=== PATIENT | male | born 1965 | race Caucasian/White ===

== ENCOUNTER 2018-01-08 08:26 | Outpatient (REF) | payer BC, SELFPAY ==
[2018-01-08 12:50] LABS: ALT 44 U/L (12-78); AST 27 U/L (15-37); Alkaline Phosphatase 48 U/L (46-116); BUN 16 mg/dL (7-18); Bilirubin, Total 1.4 mg/dL (0.2-1.0); CREATININE 0.98 mg/dL (0.70-1.30); Calcium 9.2 mg/dL (8.5-10.1); Chloride 103 mmol/L (98-107); Cholesterol 231 mg/dL (50-200); Glucose 84 mg/dL (70-100); HDL Cholesterol 53 mg/dL (40-60); LDL CHOLESTEROL 164 mg/dL (<100); Potassium 4.2 mmol/L (3.5-5.1); Sodium 141 mmol/L (136-145); Triglyceride 139 mg/dL (30-150)
== END 2018-01-08 08:46 ==
LOC: NCHCN 08:26
PROVIDERS: PCP Nurse Practitioner; Visit Provider Nurse Practitioner
DX: R03.0 Elevated blood-pressure reading, without diagnosis of hypertension (principal); E78.5 Hyperlipidemia, unspecified
CPT/HCPCS: 80053; 80061; 83721

== ENCOUNTER 2018-07-28 16:11 | Outpatient (REF) | payer BC, SELFPAY ==
[2018-07-30 12:26] LABS: Lyme Ab w Rflx to Lyme Confirm Negative
== END 2018-07-28 16:31 ==
LOC: NCHCN 16:11
PROVIDERS: PCP Nurse Practitioner; Visit Provider Family Medicine
DX: A69.20 Lyme disease, unspecified (principal)
CPT/HCPCS: 86618

== ENCOUNTER 2018-10-31 09:26 | Day surgery (SDC) | payer BC, SELFPAY ==
[2018-10-31 09:52] VITALS: BP 139/93; PULSE 79; RESP 18; TEMP 36.2; O2SAT 97
[2018-10-31] MEDS: Lactated Ringers 1,000 ML 80 ML IV (10:12)
--- NOTE | 2018-10-31 11:29 | W.PM.DSUDISC ---
Discharge Plan Disposition Patient Disposition: HOME Condition: Good Discharge Details Reason For Visit: Colonoscopy Attending Provider: Hina Coburn Primary Care Provider: Lauren Juárez Home Meds and New Rx's Prescriptions: Continued multivitamin capsule 1 cap PO DAILY RF: 0 Discharge Instructions Additional Instructions: Findings: Your colonoscopy was normal Follow up: Plan for routine screening colonoscopy in 10 years or sooner if symptoms arise. Please call if you develop: fevers >101.5 Nausea or Vomiting Abdominal pain that is not transient DAY SURGERY UNIT POST COLONOSCOPY INSTRUCTIONS 1. Because there will be medication in your system for the next 24 hours, you may feel a little sleepy. Your coordination will be affected. Therefore: a. Do not drive or operate dangerous equipment for 24 hours. b. Do not drink alcohol beverages for 24 hours (not even beer). c. Plan to go home and rest for the day. 2. Generally there are no restrictions on your activity after a day or so has gone by, but you may feel a bit fatigued for a few days. 3 After you arrive home you may have a light meal and return to a normal diet as you can tolerate it without feeling sick to your stomach. 4. After surgery, you may feel pain or discomfort. This should be only transient, but if it persists please contact your doctor. 5. If there are any questions regarding the findings of your procedure, please feel free to contact your doctor. 6. If you are unable to contact your doctor with a problem, contact the hospital at [phone]. 7. Continue all your regular medications unless directed otherwise. I understand the above instructions and have no questions. Signature of Patient or Responsible Adult Escort Date/Time Name of Responsible Adult Escort Signature of Nurse Date/Time Activity:: Activity as Tolerated Diet:: As Tolerated Discharge Orders Discharge Orders: Discharge Order (Routine); Ordered 10/31/18 Ordered By: Hina Coburn DS: Diagnosis Discharge Diagnosis (1) Normal colonoscopy: Status: Acute
[2018-10-31 12:55] VITALS: BP 136/88; PULSE 63; RESP 16; TEMP 36.4; O2SAT 97
--- NOTE | 2018-10-31 15:23 | COLE_ITS ---
DATE OF PROCEDURE: October 31, 2018 PREOPERATIVE DIAGNOSIS: Screening. POSTOPERATIVE DIAGNOSIS: Normal colon. PROCEDURE: Colonoscopy. SURGEON: Hina Coburn M.D. ANESTHESIA: General. INDICATIONS: This is a 52-year-old man who presents for his first screening colonoscopy. He is asym ptomatic and has no family history of colon cancer. PROCEDURE: The patient was placed in the left Berg position. Propofol was titrated to sedation. D igital rectal examination revealed no abnormalities. The scope was advanced to the cecum without dif ficulty. The ileocecal valve and appendiceal orifice were clearly identified. His prep was excellen t. The scope was slowly withdrawn with no abnormalities seen within the ascending, transverse, desce nding, sigmoid colon or rectum, including on retroflex view. He tolerated the procedure well and was stable to recovery. He will need a follow-up screening exam in ten years or sooner if symptoms indicate. cc: Lauren Juárez N.P.
== END 2018-10-31 13:11 | disposition home or self-care (01) ==
PROVIDERS: PCP Nurse Practitioner; Visit Provider Surgery
PROC: 0DJD8ZZ Inspection of Lower Intestinal Tract, Via Natural or Artificial Opening Endoscopic (ICD-10-PCS; CPT 45378; principal; 2018-10-31 12:15)
DX: Z12.11 Encounter for screening for malignant neoplasm of colon (principal)
CPT/HCPCS: 45378

== ENCOUNTER 2020-04-04 16:10 | Outpatient (REF) | payer BC, SELFPAY ==
[2020-04-04 18:53] LABS: Abs Immature Grans 0.02 10^3/uL (0.0-0.06); Absolute Basophil Count 0.05 10^3/uL (0.0-0.2); Absolute Eosinophil Count 0.16 10^3/uL (0.0-0.7); Absolute Lymphocyte Count 3.22 10^3/uL (1.2-3.4); Absolute Monocyte Count 0.56 10^3/uL (0.1-0.8); Absolute Neutrophil Count 5.42 10^3/uL (1.2-6.7); Basophils % 0.5; Eosinophils % 1.7; HCT 44.7 % (40.0-50.0); Immature Grans % 0.2; Lymphocytes % 34.1; MCH 27.8 pg (27.0-33.0); MCHC 33.6 % (32.0-36.0); MCV 82.9 fL (80-95); MPV 9.7 fL (8.0-11.0); Monocytes % 5.9; Neutrophils % 57.6; Nucleated RBC 0 %; Platelet Count 303 10^3/uL (130-400); RBC 5.39 10^6/uL (4.36-5.78); RDW 12.4 % (11.8-14.1); RDW-SD 37.3 fL; WBC 9.43 10^3/uL (4.4-10.8)
[2020-04-04 19:21] LABS: ALT 51 U/L (16-63); AST 34 U/L (15-37); Alkaline Phosphatase 55 U/L (46-116); Anion Gap 7.2 mmol/L (3-11); BUN 13 mg/dL (7-18); Bilirubin, Total 0.5 mg/dL (0.2-1.0); C-Reactive Protein 0.12 mg/dL (0.0-0.3); CO2 29.8 mmol/L (21.0-32.0); CREATININE 0.9 mg/dL (0.70-1.30); Calcium 8.9 mg/dL (8.5-10.1); Chloride 103 mmol/L (98-107); Glucose 87 mg/dL (74-106); Potassium 3.8 mmol/L (3.5-5.1); Sodium 140 mmol/L (136-145); TSH (W/Ref FT4) 2.15 uIU/mL (0.36-3.74); Total Protein 7.2 g/dL (6.4-8.2)
[2020-04-06 11:56] LABS: IgA 231 mg/dL (85-499); Interpretation (See Note); Tissue Transglutaminase IgA <1.2 U/mL (<4.0)
== END 2020-04-04 16:11 | disposition home or self-care (01) ==
LOC: NCHCN 16:10
PROVIDERS: PCP Nurse Practitioner; Visit Provider Nurse Practitioner
DX: K29.70 Gastritis, unspecified, without bleeding (principal); R63.4 Abnormal weight loss; R19.7 Diarrhea, unspecified
CPT/HCPCS: 80053; 82784; 83516; 84443; 85025; 86140

== ENCOUNTER 2020-04-05 19:26 | Outpatient (REF) | payer BC, SELFPAY ==
[2020-04-06 11:01] LABS: C Diff PCR Negative (Negative)
== END 2020-04-05 19:27 | disposition home or self-care (01) ==
LOC: LBN 19:26
PROVIDERS: PCP Nurse Practitioner; Visit Provider Nurse Practitioner
DX: R19.7 Diarrhea, unspecified (principal); K29.70 Gastritis, unspecified, without bleeding; R63.4 Abnormal weight loss
CPT/HCPCS: 87329; 87493; 83630; 87177

== ENCOUNTER 2020-09-13 03:00 | Outpatient (CLI) | payer BC, SELFPAY ==
--- NOTE | 2020-09-13 | DI.MRI_ITS ---
Exam(s) MR LUMBAR SPINE WO EXAM: MR LUMBAR SPINE WO CLINICAL HISTORY: RADICULOPATHY,M54.10. TECHNIQUE: Multiplanar multisequence MRI of the Lumbar spine was performed. COMPARISON: No exams were available for comparison FINDINGS: Bones: The last intervertebral disc space is designated the L5/S1 level for the numbering purpose of this examination. The vertebral body heights are well maintained. Alignment is satisfactory. Mild d egenerative endplate signal changes are seen from L1-L2 through L4-L5. Cord: The conus tip ends at the T12 level. It is of normal size and signal intensity. T12-L1: No disc herniations or bulges are present. No central spinal canal or neural foraminal stenos is. L1-2: There is a diffuse disc bulge eccentric to the right. There is mild narrowing of the central s carlos canal. Mild narrowing of the left neural foramen is seen. L2-3: There is a diffuse disc bulge with lateral herniation to the right. Degenerative changes of th e facets are present. These all contribute to cause moderately severe central spinal canal stenosis. Mild narrowing of the right neural foramen is seen. No significant left neural foraminal stenosis is present. L3-4: There is a large diffuse disc bulge. There are hypertrophic changes of the facets. These all contribute to cause severe central spinal canal stenosis. Mild narrowing of the neural foramen is se en bilaterally. L4-5: There is a diffuse disc bulge. There are hypertrophic changes of the facets and ligamentum fla vum. These all contribute to cause moderately severe central spinal canal stenosis. Mild bilateral neural foraminal stenosis is present. L5-S1: There is a mild diffuse disc bulge. Mild degenerative changes of the facets are noted. No si gnificant central spinal canal stenosis is present. Moderately severe left neural foraminal stenosis is present. Soft tissues: The visualized SI joints and sacrum are well maintained. The paraspinal soft tissues ar e unremarkable. A simple cyst is seen in the midpole of the right kidney. This was present on ultras ound of the abdomen from 09/28/2014. IMPRESSION: Multilevel degenerative changes with disc bulges causing central spinal canal and neural foraminal st enosis as described above. DATA REPOSITORY:
== END 2020-09-13 03:20 ==
PROVIDERS: PCP Nurse Practitioner; Visit Provider Nurse Practitioner
DX: M47.27 Other spondylosis with radiculopathy, lumbosacral region (principal); M48.07 Spinal stenosis, lumbosacral region; M51.17 Intervertebral disc disorders with radiculopathy, lumbosacral region
CPT/HCPCS: 72148

== ENCOUNTER 2021-04-20 09:27 | Outpatient (REF) | payer BC, SELFPAY ==
[2021-04-20 15:03] LABS: Anion Gap 6.7 mmol/L (3-11); BUN 18 mg/dL (7-18); CO2 29.3 mmol/L (21.0-32.0); Calculated LDL 167 mg/dL (<100); Chloride 105 mmol/L (98-107); Cholesterol 241 mg/dL (<200); Glucose 76 mg/dL (74-106); HDL Cholesterol 48 mg/dL (40-60); Potassium 4.3 mmol/L (3.5-5.1); Sodium 141 mmol/L (136-145); Triglyceride 133 mg/dL (<150)
[2021-04-20 22:57] LABS: PSA, Screening 0.6 ng/mL (0.0-3.5)
== END 2021-04-20 09:28 | disposition home or self-care (01) ==
LOC: LBN 09:27
PROVIDERS: PCP Nurse Practitioner; Visit Provider Physician Assistant
DX: I10 Essential (primary) hypertension (principal); M48.061 Spinal stenosis, lumbar region without neurogenic claudication; Z12.5 Encounter for screening for malignant neoplasm of prostate; E78.5 Hyperlipidemia, unspecified
CPT/HCPCS: 80048; 80061; 84153

== ENCOUNTER 2022-04-19 14:57 | Outpatient (REF) | payer BC, SELFPAY ==
[2022-04-19 15:00] LABS: Abs Immature Grans 0.02 10^3/uL (0.0-0.06); Absolute Basophil Count 0.06 10^3/uL (0.0-0.2); Absolute Eosinophil Count 0.22 10^3/uL (0.0-0.7); Absolute Lymphocyte Count 3.66 10^3/uL (1.2-3.4); Absolute Monocyte Count 0.57 10^3/uL (0.1-0.8); Absolute Neutrophil Count 4.62 10^3/uL (1.2-6.7); Basophils % 0.7; Eosinophils % 2.4; HCT 42.8 % (40.0-50.0); HGB 14.1 g/dL (13.5-17.5); Immature Grans % 0.2; MCH 27.6 pg (27.0-33.0); MCHC 32.9 % (32.0-36.0); MCV 84 fL (80-95); MPV 9.8 fL (8.0-11.0); Monocytes % 6.2; Neutrophils % 50.5; Platelet Count 267 10^3/uL (130-400); RBC 5.11 10^6/uL (4.36-5.78); RDW 12.7 % (11.8-14.1); RDW-SD 38.7 fL; WBC 9.15 10^3/uL (4.4-10.8)
[2022-04-19 15:25] LABS: Anion Gap 8.1 mmol/L (3-11); BUN 23 mg/dL (7-18); CO2 27.9 mmol/L (21.0-32.0); CREATININE 0.9 mg/dL (0.70-1.30); Calcium 9.2 mg/dL (8.5-10.1); Calculated LDL 147 mg/dL (<100); Chloride 105 mmol/L (98-107); Cholesterol 222 mg/dL (<200); Estimated GFR 100.24 (mL/min/1.73m2); Glucose 92 mg/dL (74-106); HDL Cholesterol 53 mg/dL (40-60); Potassium 4.3 mmol/L (3.5-5.1); Sodium 141 mmol/L (136-145); Triglyceride 111 mg/dL (<150)
== END 2022-04-19 14:58 | disposition home or self-care (01) ==
LOC: NCHCN 14:57
PROVIDERS: PCP Nurse Practitioner; Visit Provider Physician Assistant
DX: Z00.00 Encounter for general adult medical examination without abnormal findings (principal); E78.5 Hyperlipidemia, unspecified; I10 Essential (primary) hypertension; K58.9 Irritable bowel syndrome, unspecified
CPT/HCPCS: 80048; 80061; 85025

== ENCOUNTER 2022-07-08 15:43 | Emergency (ER) | payer BC, SELFPAY ==
[2022-07-08 15:48] VITALS: BP 157/92; PULSE 76; RESP 16; TEMP 37.7; O2SAT 96
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
--- NOTE | 2022-07-08 16:45 | DI.RAD_ITS ---
Exam(s) XR CHEST 2V PA LATERAL EXAM: XR CHEST 2V PA LATERAL CLINICAL HISTORY: pain TECHNIQUE: 2D digital imaging was performed of the chest. Two images were obtained. PA and lateral views were obtained. COMPARISON: Comparison examination is 12/15/2012. FINDINGS: MEDIASTINUM: Normal. HEART: Normal. PULMONARY VASCULATURE: Normal. LUNGS: There is bilateral basilar atelectasis. No focal consolidating infiltrates. PLEURAL SPACE: There is a small right apical pneumothorax measuring 1.8 cm from the apex of the right hemithorax. No left pneumothorax. No pleural effusion. BONE:Within normal limits for the patient's age. OTHER FINDINGS:Normal. IMPRESSION: 1. Small right apical pneumothorax. 2. Small bilateral basilar linear infiltrates likely reflecting atelectasis. 3. No acute fracture. 4. Findings were discussed with Dr. Cline at 7:40 p.m. on 07/08/2022. DATA REPOSITORY: RADIATION DOSE DELIVERED:
[2022-07-08 17:12] VITALS: BP 149/94; PULSE 80; RESP 18; O2SAT 97
--- NOTE | 2022-07-08 17:18 | DI.VRAD_ITS ---
PROCEDURE INFORMATION: Exam: XR Chest Exam date and time: 07/08/2022 4:54 PM Age: 56 years old Clinical indication: Chest wall pain and right-sided; Patient HX: Pain on right side TECHNIQUE: Imaging protocol: Radiologic exam of the chest. Views: 2 views. COMPARISON: No relevant prior studies available. FINDINGS: Lungs: Basilar airspace consolidation bilaterally suggesting atelectasis or possibly basilar infiltrates. This is more prominent on the right than the left. Pleural spaces: Minimal right pleural effusion is suggested. Heart/Mediastinum: Normal heart size. Bones/joints: No acute skeletal changes. IMPRESSION: 1. Bibasilar lung consolidative features suggesting atelectasis or basilar infiltrates. More prominent on right than left. 2. Small right pleural effusions is suggested. 3. Normal cardiac and mediastinal silhouette. Dictated and Authenticated by: Shaun Graham MD. Ordering:LATOYA Cabrera MD
[2022-07-08] MEDS: Lidocaine 5% Patch 1 PATCH TP (17:30)
[2022-07-08 18:13] VITALS: BP 144/90; PULSE 78; RESP 16; O2SAT 97
--- NOTE | 2022-07-08 20:44 | W.EDPROG ---
Date of service: 07/08/22 Time of Service: 20:45 Medical Decision Making Received phone call from Dr. Olivera stating that patient may have a small apical pneumothorax. Case was discussed with Dr. Moser. PLan is for the Patient to return to the emergency department tomorrow morning for repeat chest x-ray. I have talked with the patient and he is aware of the small PTx. Discharge Plan Disposition Patient Disposition: Home Discharge Details Clinical Impression: Chest wall contusion Primary Care Provider: Lauren Juárez ED Provider: Rick Cline Home Meds and New Rx's Prescriptions: No Action multivitamin capsule 1 cap PO DAILY lisinopril 5 mg Tablet 5 mg PO DAILY Discharge Instructions Instructions: Contusion in Adults (ED) Additional Instructions: You may take Tylenol 1 g every 6 hours for the pain you may also take ibuprofen 600 mg every 8 hours for the pain. Use the lidocaine patch 12 hours. You are being sent home with a lidocaine patch now to help ease the pain. I recommend however that you transition to day of the lidocaine patch. the lidocaine patch stays on 12 hours a day. do not use any warm compresses or ice packs on over of the lidocaine patches. You may use these modalities when the lidocaine patch is off. use the incentive spiromter every hour while awake Stand Alone Forms: Work Release Discharge Data Discharge Date/Time-TO BE ENTERED AT DEPARTURE: 07/08/22 18:03
== END 2022-07-08 18:03 | disposition home or self-care (01) ==
PROVIDERS: Emergency Provider Emergency Medicine; PCP Physician Assistant
DX: S20.219A Contusion of unspecified front wall of thorax, initial encounter (principal); V19.88XA Pedal cyclist (driver) (passenger) injured in other specified transport accidents, initial encounter; J90 Pleural effusion, not elsewhere classified; R91.8 Other nonspecific abnormal finding of lung field
CPT/HCPCS: 99283; 71046

== ENCOUNTER 2022-07-09 09:26 | Emergency (ER) | payer BC, SELFPAY ==
--- NOTE | 2022-07-09 09:15 | DI.RAD_ITS ---
Exam(s) XR CHEST 2V PA LATERAL EXAM: XR CHEST 2V PA LATERAL CLINICAL HISTORY: reevaluation of possible PTx TECHNIQUE: 2D digital imaging was performed of the chest. Two images were obtained. PA and lateral views were obtained. COMPARISON: CR,XR XR CHEST 2V PA LATERAL from 07/08/2022 FINDINGS: MEDIASTINUM: Normal. HEART: Normal. PULMONARY VASCULATURE: Normal. LUNGS: Persistent linear atelectasis is seen in the lung bases which shows slight improvement. PLEURAL SPACE: There is a persistent very small right apical pneumothorax. There has been no signifi cant change in size compared to the prior examination. There is no left pneumothorax. No pleural ef fusion. BONE:Within normal limits for the patient's age. OTHER FINDINGS:Normal. IMPRESSION: 1. There is a stable small right apical pneumothorax. 2. Bilateral basilar atelectasis. DATA REPOSITORY: RADIATION DOSE DELIVERED:
[2022-07-09 09:30] VITALS: BP 144/73; PULSE 77; RESP 18; TEMP 37; O2SAT 97
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
== END 2022-07-09 10:25 | disposition home or self-care (01) ==
PROVIDERS: Emergency Provider Physician Assistant; PCP Physician Assistant
DX: J93.9 Pneumothorax, unspecified (principal)
CPT/HCPCS: 99283; 71046

== ENCOUNTER 2022-07-24 02:43 | Outpatient (CLI) | payer BC, SELFPAY ==
--- NOTE | 2022-07-24 | DI.RAD_ITS ---
Exam(s) XR CHEST 2V PA LATERAL EXAM: XR CHEST 2V PA LATERAL CLINICAL HISTORY: F/U SMALL PNEUMOTHORAX, J93.9 TECHNIQUE: 2D digital imaging was performed of the chest. Two images were obtained. PA and lateral views were obtained. COMPARISON: CR XR CHEST 2V PA LATERAL from 07/09/2022 FINDINGS: MEDIASTINUM: Normal. HEART: Normal. PULMONARY VASCULATURE: Normal. LUNGS: Plate atelectasis is seen in the lung base. The lungs are otherwise clear. PLEURAL SPACE: No pleural effusion or pneumothorax. BONE:Within normal limits for the patient's age. OTHER FINDINGS:Normal. IMPRESSION: 1. No acute pulmonary findings. 2. No evidence of a pneumothorax. DATA REPOSITORY: RADIATION DOSE DELIVERED:
== END 2022-07-24 03:03 ==
LOC: DI 02:44
PROVIDERS: PCP Physician Assistant; Visit Provider Physician Assistant
DX: V19.88XD Pedal cyclist (driver) (passenger) injured in other specified transport accidents, subsequent encounter (principal); S20.219D Contusion of unspecified front wall of thorax, subsequent encounter; J90 Pleural effusion, not elsewhere classified; X58.XXXD Exposure to other specified factors, subsequent encounter
CPT/HCPCS: 71046

== ENCOUNTER 2022-09-24 17:59 | Outpatient (REF) | payer BC, SELFPAY ==
[2022-09-24 21:47] LABS: Abs Immature Grans 0.01 10^3/uL (0.0-0.06); Absolute Basophil Count 0.05 10^3/uL (0.0-0.2); Absolute Eosinophil Count 0.05 10^3/uL (0.0-0.7); Absolute Lymphocyte Count 1.77 10^3/uL (1.2-3.4); Absolute Monocyte Count 0.85 10^3/uL (0.1-0.8); Absolute Neutrophil Count 3.44 10^3/uL (1.2-6.7); Basophils % 0.8; Eosinophils % 0.8; HCT 43.1 % (40.0-50.0); HGB 14.6 g/dL (13.5-17.5); Immature Grans % 0.2; Lymphocytes % 28.7; MCHC 33.9 % (32.0-36.0); MCV 83 fL (80-95); MPV 9.9 fL (8.0-11.0); Monocytes % 13.8; Neutrophils % 55.7; Platelet Count 214 10^3/uL (130-400); RBC 5.22 10^6/uL (4.36-5.78); WBC 6.17 10^3/uL (4.4-10.8)
[2022-09-24 21:48] LABS: ALT 64 U/L (16-63); AST 57 U/L (15-37); Albumin 3.8 g/dL (3.4-5.0); Alkaline Phosphatase 86 U/L (46-116); Anion Gap 9.2 mmol/L (3-11); BUN 15 mg/dL (7-18); Bilirubin, Total 0.9 mg/dL (0.2-1.0); CO2 28.8 mmol/L (21.0-32.0); CREATININE 0.9 mg/dL (0.70-1.30); Chloride 98 mmol/L (98-107); Estimated GFR 99.62 (mL/min/1.73m2); Glucose 97 mg/dL (74-106); Potassium 4.1 mmol/L (3.5-5.1); Sodium 136 mmol/L (136-145); Total Protein 7.1 g/dL (6.4-8.2)
[2022-09-26 11:11] LABS: Lyme Ab w Rflx to Lyme Confirm Equivocal (Negative)
[2022-09-26 12:32] LABS: Lyme IgG Ab Negative (Negative); Lyme IgM Ab Positive (Negative)
[2022-09-27 15:17] LABS: Anaplasma phagocytophilum Negative (Negative); B. miyamotoi PCR Negative (Negative); Babesia divergens/MO-1 Negative (Negative); Babesia duncani Negative (Negative); Babesia microti Negative (Negative); Ehrlichia chaffeensis Negative (Negative); Ehrlichia ewingii/canis Negative (Negative); Ehrlichia muris eauclairensis Negative (Negative)
== END 2022-09-24 18:00 | disposition home or self-care (01) ==
LOC: LBN 17:59
PROVIDERS: PCP Physician Assistant; Visit Provider Family Medicine
DX: R50.9 Fever, unspecified (principal)
CPT/HCPCS: 80053; 86617; 87798; 85025; 86618

== ENCOUNTER 2023-06-03 05:57 | Outpatient (CLI) | payer BC, SELFPAY ==
[2023-06-03 15:52] LABS: HCT 43.1 % (40.0-50.0); HGB 14.5 g/dL (13.5-17.5); MCH 27.8 pg (27.0-33.0); MCHC 33.6 % (32.0-36.0); MCV 83 fL (80-95); Platelet Count 250 10^3/uL (130-400); RBC 5.21 10^6/uL (4.36-5.78); RDW 12.8 % (11.8-14.1); RDW-SD 38.5 fL; WBC 9.98 10^3/uL (4.4-10.8)
[2023-06-03 16:16] LABS: ALT 32 U/L (16-63); AST 23 U/L (15-37); Albumin 3.9 g/dL (3.4-5.0); Alkaline Phosphatase 51 U/L (46-116); Anion Gap 7.5 mmol/L (3-11); BUN 12 mg/dL (7-18); Bilirubin, Total 1.1 mg/dL (0.2-1.0); CO2 30.5 mmol/L (21.0-32.0); CREATININE 0.9 mg/dL (0.70-1.30); Calcium 9.1 mg/dL (8.5-10.1); Calculated LDL 137 mg/dL (<100); Chloride 102 mmol/L (98-107); Cholesterol 217 mg/dL (<200); Estimated GFR 99.62 (mL/min/1.73m2); Glucose 90 mg/dL (74-106); HDL Cholesterol 55 mg/dL (40-60); Potassium 3.9 mmol/L (3.5-5.1); Sodium 140 mmol/L (136-145); Total Protein 7.3 g/dL (6.4-8.2); Triglyceride 126 mg/dL (<150)
[2023-06-04 08:19] LABS: PSA, Screening 0.6 ng/mL (<=3.5)
== END 2023-06-03 05:58 | disposition home or self-care (01) ==
PROVIDERS: PCP Physician Assistant; Visit Provider Physician Assistant
DX: I10 Essential (primary) hypertension (principal); E78.5 Hyperlipidemia, unspecified
CPT/HCPCS: 36415; 80053; 80061; 84153; 85027

== ENCOUNTER 2023-10-27 12:17 | Emergency (ER) | payer BC, SELFPAY ==
[2023-10-27] VITALS (45 sets, daily range): BP systolic 95–134; BP diastolic 54–90; PULSE 52–83; RESP 7–22; TEMP 36.2; O2SAT 95–100
--- NOTE | 2023-10-27 12:30 | RT.EKG_ITS ---
APPROVED REPORT Exam: Resting ECG Reason for Exam: WEakness Patient Location: E HR:56 bpm ECG Measurements Heart Rate 56 AXIS IA 156 P 59 QRSd 106 QRS 2 QT 429 T 32 QTc 416 Conclusion Sinus bradycardia...rate< 60 Probable left atrial enlargement...P >50mS, <-0.10mV V1 Low voltage, extremity leads...all extremity leads <0.5mV sinus severiano, normal intervals, non ischemic
--- NOTE | 2023-10-27 12:30 | DI.RAD_ITS ---
Exam(s) XR CHEST 2V PA LATERAL EXAM: XR CHEST 2V PA LATERAL CLINICAL HISTORY: weakness diaphoresis TECHNIQUE: 2D digital imaging was performed of the chest. Three images were obtained. PA and later al views were obtained. COMPARISON: CR XR CHEST 2V PA LATERAL from 07/24/2022 FINDINGS: MEDIASTINUM: Normal. HEART: Normal. PULMONARY VASCULATURE: Normal. LUNGS: There is linear atelectasis or scarring in the lung bases. No focal consolidating infiltrates are present. PLEURAL SPACE: No pleural effusion or pneumothorax. BONE:Within normal limits for the patient's age. OTHER FINDINGS:Normal. IMPRESSION: No focal consolidating infiltrates. DATA REPOSITORY: RADIATION DOSE DELIVERED:
[2023-10-27] MEDS: ACETAMINOPHEN 1,000 MG/100 ML BTL 400 MG IVPB (12:50)
[2023-10-27] MEDS: Normal Saline 1,000 ML 1000 ML IV (12:52)
[2023-10-27 12:56] LABS: Abs Immature Grans 0.02 10^3/uL (0.0-0.06); HCT 44.1 % (40.0-50.0); MCH 27.4 pg (27.0-33.0); MCV 81 fL (80-95); MPV 9.2 fL (8.0-11.0); Platelet Count 132 10^3/uL (130-400); RBC 5.48 10^6/uL (4.36-5.78); RDW 12.7 % (11.8-14.1); RDW-SD 36.6 fL; WBC 5.38 10^3/uL (4.4-10.8)
[2023-10-27 12:59] LABS: BE (Venous) 1 mmol/L (-2-3); HCO3 (Venous) 25 mmol/L (23-28); O2 Sat (Venous) 87 %; TCO2 (Venous) 22 mmol/L (24-29); pCO2 (Venous) 39 mmHg (41-51); pH (Venous) 7.41 (7.31-7.41); pO2 (Venous) 52 mmHg
[2023-10-27 13:07] LABS: INR 1.3 (0.9-1.1); PTT Activated 28.6 sec (23.6-32.8); Prothrombin Time 12.8 sec (9.1-11.1)
[2023-10-27 13:23] LABS: COVID-19 PCR Negative (Negative); Influenza A PCR Negative (Negative); Influenza B PCR Negative (Negative); RSV PCR Negative (Negative)
[2023-10-27 13:28] LABS: ALT 58 U/L (16-63); AST 74 U/L (15-37); Albumin 3.6 g/dL (3.4-5.0); Alkaline Phosphatase 78 U/L (46-116); Anion Gap 8.7 mmol/L (3-11); BUN 20 mg/dL (7-18); Bilirubin, Total 1.45 mg/dL (0.2-1.0); CO2 25.3 mmol/L (21.0-32.0); CREATININE 1.1 mg/dL (0.70-1.30); Calcium 9.3 mg/dL (8.5-10.1); Chloride 96 mmol/L (98-107); Estimated GFR 77.81 (mL/min/1.73m2); Glucose 112 mg/dL (74-106); Lipase 69 U/L (16-77); Magnesium 2.5 mg/dL (1.8-2.4); NT-proBNP 21 pg/mL (<300); Potassium 3.7 mmol/L (3.5-5.1); Sodium 130 mmol/L (136-145); TSH (W/Ref FT4) 3.37 uIU/mL (0.36-3.74); Total Protein 7.7 g/dL (6.4-8.2); Troponin I 8 ng/L (4-76)
[2023-10-27 13:30] LABS: Absolute Lymphocyte Count 2.26 10^3/uL (1.2-3.4); Absolute Monocyte Count 0.32 10^3/uL (0.1-0.8); Atypical Lymphocytes % 6 %
[2023-10-27 13:31] LABS: Diff Comment Manual Differential; RBC Morphology Normal
[2023-10-27 13:34] LABS: Source Nasopharynx
--- NOTE | 2023-10-27 13:36 | ED.GENADUL_ITS ---
Discharge Plan Disposition Patient Disposition: Home Condition: Improving Discharge Details Chief Complaint: Dizzy/Sync Clinical Impression: Dehydration, Pre-syncope Primary Care Provider: Gen Nelson ED Provider: Satish Tellez Home Meds and New Rx's Prescriptions: No Action multivitamin capsule 1 cap PO DAILY lisinopril 5 mg Tablet 5 mg PO DAILY Discharge Instructions Instructions: Dehydration, Adult (DC), Near Fainting (DC) Additional Instructions: Please ensure adequate fluid and food intake. Please return to the emerged part for any worsening symptoms. Follow-up closely with your primary care physician HPI General Date/Time Provider Initiated Documentation: 10/27/23 12:39 . 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 Negative COVID test at home. Patient had near syncopal episode in triage box on arrival Related Data Home Medications ?Medication ?Instructions ?Recorded ?Confirmed multivitamin 1 cap PO DAILY 08/19/18 10/27/23 lisinopril 5 mg tablet 5 mg PO DAILY 07/08/22 10/27/23 Allergies Allergy/AdvReac Type Severity Reaction Status Date / Time No Known Allergies Allergy Verified 10/27/23 12:31 General Stated Complaint: Dizzy/Sync ALFREDO: 3 Exam Narrative Exam Narrative: Pale diaphoretic Alert Moist mucous membranes pink conjunctiva Normal voice tolerate secretions no stridor Lungs clear bilaterally no wheezes rales or rhonchi Normal heart sounds no murmurs rubs or gallops Abdomen soft nontender nondistended Moving all extremities to command alert cranial nerves intact 5-5 strength upper lower extremities ambulatory without ataxia No appreciable peripheral edema Course Vital Signs Vital signs: Vital Signs Temperature 36.2 C L 10/27/23 12:25 Pulse 83 10/27/23 12:25 Respiratory Rate 16 10/27/23 12:25 Blood Pressure 103/73 10/27/23 12:25 Pulse Oximetry 98 10/27/23 12:25 Temperature 36.2 C L 10/27/23 12:25 Temperature Source Temporal Artery Scan 10/27/23 12:25 Pulse 83 10/27/23 12:25 Respiratory Rate 16 10/27/23 12:52 Respiratory Effort Normal, Non-Labored 10/27/23 12:52 Respiratory Depth Normal 10/27/23 12:52 Respiratory Pattern Normal 10/27/23 12:52 Blood Pressure 103/73 10/27/23 12:25 Pulse Oximetry 98 10/27/23 12:25 Oxygen Delivery Method Room Air 10/27/23 12:25 Oxygen Flow Rate 0 10/27/23 12:25 Pain Level 7 10/27/23 12:25 Lab/Test Results Lab/Test Results: Laboratory Tests Range/Units 10/27/23 10/27/23 12:38 12:42 WBC (4.4-10.8) 10^3/uL 5.38 RBC (4.36-5.78) 10^6/uL 5.48 Hgb (13.5-17.5) g/dL 15.0 Hct (40.0-50.0) % 44.1 MCV (80-95) fL 81 MCH (27.0-33.0) pg 27.4 MCHC (32.0-36.0) % 34.0 RDW (11.8-14.1) % 12.7 Plt Count (130-400) 10^3/uL 132 MPV (8.0-11.0) fL 9.2 Immature Gran % % 0.0 Neutrophils % % 52.0 Lymphocytes % % 36.0 Atypical Lymphs % % 6 Monocytes % % 6.0 Eosinophils % % 0.0 Basophils % % 0.0 Nucleated RBC % (0.0-0.3) % 0.0 Absolute Neutrophils (1.2-6.7) 10^3/uL 2.80 Absolute Lymphocytes (1.2-3.4) 10^3/uL 2.26 Absolute Monocytes (0.1-0.8) 10^3/uL 0.32 Absolute Eosinophils (0.0-0.7) 10^3/uL 0.00 Absolute Basophils (0.0-0.2) 10^3/uL 0.00 RBC Morphology Normal PT (9.1-11.1) sec 12.8 H INR (0.9-1.1) 1.3 H APTT (23.6-32.8) sec 28.6 VBG pH (7.31-7.41) 7.41 VBG pCO2 (41-51) mmHg 39 L VBG pO2 mmHg 52 VBG HCO3 (23-28) mmol/L 25 VBG Total CO2 (24-29) mmol/L 22 L VBG O2 Saturation % 87 VBG Base Excess (-2-3) mmol/L 1 Sodium (136-145) mmol/L 130 L Potassium (3.5-5.1) mmol/L 3.7 Chloride (98-107) mmol/L 96 L Carbon Dioxide (21.0-32.0) mmol/L 25.3 Anion Gap (3-11) mmol/L 8.7 BUN (7-18) mg/dL 20 H Creatinine (0.70-1.30) mg/dL 1.1 Est GFR (CKD-EPI 2020) (mL/min/1.73m2) 77.81 Glucose (74-106) mg/dL 112 H Calcium (8.5-10.1) mg/dL 9.3 Magnesium (1.8-2.4) mg/dL 2.5 H Total Bilirubin (0.2-1.0) mg/dL 1.45 H AST (15-37) U/L 74 H ALT (16-63) U/L 58 Alkaline Phosphatase (46-116) U/L 78 Troponin I High Sens (4-76) ng/L 8 NT-Pro-B Natriuret Pep (<300) pg/mL 21 Total Protein (6.4-8.2) g/dL 7.7 Albumin (3.4-5.0) g/dL 3.6 Lipase (16-77) U/L 69 TSH (0.36-3.74) uIU/mL 3.37 COVID-19 Source Nasopharynx SARS-CoV-2 (PCR) (Negative) Negative Influenza Type A (PCR) (Negative) Negative Influenza Type B (PCR) (Negative) Negative RSV (PCR) (Negative) Negative Medical Decision Making 58-year-old male history of hyperlipidemia, prior Lyme disease, presents with lightheadedness body aches pains generalized weakness nausea that began on Saturday denies chest pain or shortness of breath denies cough denies recent travel immobilization surgery or history of thromboembolic disease, denies history of stroke or coronary artery disease, 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 Negative COVID test at home. Patient had near syncopal episode in triage box on arrival. Patient became pale diaphoretic need assistance into wheelchair. Patient noted to have relatively soft BP 103/73, pulse ranging from the 50s to the 80s sinus rhythm nonischemic EKG, afebrile no respiratory distress. Consider dehydration versus electrolyte derangement versus viral illness versus pneumonia versus ACS lower suspicion for PE or aortic pathology no abdominal pain nausea vomiting or diarrhea to suggest intra- abdominal process, nonfocal neurologic exam low suspicion for seizure or stroke low suspicion for encephalopathy or encephalitis patient is nonmeningeal soft supple neck full range of motion with normal sensorium. Improving after rest and fluids. Consider vasovagal episode versus orthostasis. Will obtain labs and imaging EKG close reassessment 14: 48 patient symptomatology greatly improved however patient's blood pressure still remains in the low 100s systolic, despite receiving 2 L crystalloid patient is still not urinated consider hypovolemia, will continue with fluid resuscitation. Have added CT abdomen pelvis as patient does have some nausea and decreased appetite over the last couple of days. Labs and imaging thus far largely unremarkable. 16: 32 patient rest comfortably no acute distress labs and imaging unremarkable. Feeling much better after fluids, hemodynamically stable, starting to make urine currently. Likely component of dehydration and viral illness. Home care instructions and return precautions given Quality:SDOH Health Related Social Needs: No Data to Display PFSH All Active Problems (Updated 10/27/23 @ 16:33 by Satish Tellez MD) Pre-syncope (Acute) Dehydration (Acute) Normal colonoscopy (Acute) Medical History (Updated 10/27/23 @ 16:33 by Satish Tellez MD) Right foot sprain Hyperlipidemia Elevated blood pressure reading Acute Lyme disease Surgical History (Updated 10/31/18 @ 12:20 by Hina Coburn MD) Hx of colonoscopy Hx of tonsillectomy 10/31/18 Hx of appendectomy 2006. At which time a hernia was taken care of, per pt. Social History (Updated 10/24/18 @ 13:46 by BARTOLOME Lugo) Smoking/Tobacco Use Status: Never Smoking risk assessment performed?: Yes Alcohol Intake: current Alcohol Intake frequency: a few times a month Alcohol type: beer Drug use: Never Substance use type: does not use Housing: house Do you feel safe at home: Yes Do you feel safe in your relationship?: Yes PAWSS Have you Been Recently Intoxicated or Drunk Within the Last 30 days?: No Have you Ever Experienced Previous Episodes of Alcohol Withdrawal?: No Have you ever Experienced Withdrawal Seizures?: No Have you ever Experienced Delirium Tremens(DT)s?: No Have you ever undergone Alcohol Rehabilitation Treatment (i.e, inpt ot outpatient treatment programs)?: No Have you ever Experienced Blackouts?: No Have you ever Combined Alcohol with other Downers within the last 90 days?: No Have you ever Combined Alcohol with any other Substance of Abuse during the last 90 days?: No Positive Blood Alcohol level on Presentation? [PCS.BAL]: No Evidence of Increased Autonomic Activity (i.e. HR>120, tremor, sweating, agitation, nausea)?: No Result: 0
[2023-10-27] MEDS: Lactated Ringers 1,000 ML 1000 ML IV ×2 (13:49→15:40)
[2023-10-27] MEDS: Ondansetron 4 MG/2 ML VIAL IVP (13:49)
[2023-10-27 13:56] LABS: Troponin I 6 ng/L (4-76)
--- NOTE | 2023-10-27 14:45 | DI.CT_ITS ---
Exam(s) CT ABDOMEN PELVIS W EXAM: CT ABDOMEN PELVIS W CLINICAL HISTORY: nausea, near syncope TECHNIQUE: Imaging Protocol: Axial computed tomography images with coronal and sagittal reformatted images were created and reviewed. CONTRAST MATERIAL: Intravenous: Omnipaque 350 Contrast volume:100 mL Oral: No COMPARISON: No exams were available for comparison FINDINGS: ABDOMEN: Lung Bases: Normal where visualized. Liver: Normal density. No measurable mass. Parenchymal calcifications are seen in the liver. Portal, Superior Mesenteric, and Splenic Veins: Unremarkable. Gallbladder and Biliary Tract: No radiodense calculus or dilation. Pancreas: Normal density, no abnormal calcifications or inflammatory process. Spleen: Normal. Adrenals: No masses seen. Kidneys: Normal size, contour and axis. No radiodense stones or obstructive uropathy. There are bilat eral simple renal cysts. No follow-up is recommended. Note is made of a circum aortic left renal ve in. Abdominal Aorta: Abdominal portion non-dilated. Atherosclerotic calcification is present. Bowel: No obstruction or bowel wall thickening. No evidence of appendicitis. Peritoneal Cavity: There is a trace amount of free fluid in the pelvis. No free air. Lymph Nodes: Within normal limits. Bones: Within normal limits for the patient's age. Soft Tissues: Unremarkable. PELVIS: Bladder: Symmetric distention, no gross wall thickening. Reproductive Organs: Unremarkable as visualized. Lymph Nodes: Within normal limits. Bones: Within normal limits for the patient's age. IMPRESSION: No acute abdominal or pelvic process. RADIATION DOSE DELIVERED: 351.95mGy.cm Total DLP DATA REPOSITORY: All CT scans at this facility are submitted to the National Radiology Data Registry (NRDR) Dose Index Registry (DIR) with the [employer] (ACR). RADIATION OPTIMIZATION: All CT scans at this facility use at least one of these dose optimization te chniques: automated exposure control; mA and/or kV adjustment per patient size (includes targeted exa ms where dose is matched to clinical indication); or iterative reconstruction.
[2023-10-27] MEDS: Omnipaque 350 MG/ML 100 ML BTL IJ (15:27)
[2023-10-27] MEDS: Normal Saline - Diluent 50 ML VIAL IJ (15:28)
[2023-10-27 16:25] LABS: Bilirubin Negative (Negative); Blood Trace-intact (Negative); Clarity Clear (Clear); Glucose Negative (Negative); Ketones Negative (Negative); Leukocyte Esterase Negative (Negative); Nitrite Negative (Negative); Specific Gravity 1.015 (1.005-1.025); pH 6.5 (5-8)
[2023-10-27 16:32] LABS: Bacteria Negative HPF (Negative); C & S Indicated? No; Crystals Negative HPF (Negative); Epithelial Cells Rare HPF (Negative); Mucus Trace (Negative); RBC 0-2 HPF (0-2); WBC Negative HPF (0-5)
[2023-10-29 12:25] LABS: Lyme Ab w Rflx to Lyme Confirm Negative (Negative)
[2023-10-31 13:46] LABS: B. miyamotoi PCR Negative (Negative); Babesia divergens/MO-1 Negative (Negative); Babesia duncani Negative (Negative); Babesia microti Negative (Negative); Ehrlichia chaffeensis Negative (Negative); Ehrlichia ewingii/canis Negative (Negative); Ehrlichia muris eauclairensis Negative (Negative)
[2023-11-01 13:43] LABS: Anaplasma phagocytophilum Positive (Negative)
--- NOTE | 2023-11-01 13:52 | W.ED.FU ---
Date of service: 11/01/23 Time of Service: 13:52 Follow Up Plan: Lab called with positive anaplasmosis. I reviewed medical record and patient did have slight elevation of LFTs. Normal platelets. Patient was discharged home. I contacted the patient at number listed and left voice message to call the emergency department to discuss ongoing treatment. I also contacted the patient's PCP, Gen Nelson, discussed results and need for additional treatment. He will also reach out the patient to attempt to establish contact.
--- NOTE | 2023-11-01 16:15 | W.ED.GENAD ---
Discharge Plan Disposition Patient Disposition: Home Condition: Improving Discharge Details Clinical Impression: Dehydration, Pre-syncope Primary Care Provider: Gen Nelson ED Provider: Satish Tellez Home Meds and New Rx's Prescriptions: New doxycycline hyclate 100 mg capsule 100 mg PO BID 14 Days Qty: 28 0RF No Action multivitamin capsule 1 cap PO DAILY lisinopril 5 mg Tablet 5 mg PO DAILY Discharge Instructions Instructions: Dehydration, Adult (DC), Near Fainting (DC) Additional Instructions: Please ensure adequate fluid and food intake. Please return to the emerged part for any worsening symptoms. Follow-up closely with your primary care physician Discharge Data Discharge Date/Time-TO BE ENTERED AT DEPARTURE: 10/27/23 17:01 HPI General Date/Time Provider Initiated Documentation: 10/27/23 12:39. HPI Narrative: In brief, this is a 58-year-old male patient who was seen at our facility 5 days ago for a febrile illness, who had a positive anaplasmosis test reported to the emergency department today. Initially phone call unsuccessful in reaching the patient, he called back to discuss the results. This discussion was conducted by telephone. The patient reports that he feels that his illness is totally resolved. He has not noted any fevers or chills, and specifically denies development of any sort of skin rash or petechiae. He has been maintaining p.o. intake, and I shared with him the results of his tickborne illness panel. I prescribed him doxycycline, 100 mg twice daily to be taken for the next 14 days, and he is understanding that he needs to follow-up with his primary care provider to discuss any symptoms that change, worsen, or persist, and have repeat laboratory studies to include resolution of his elevated liver enzymes. The patient understands return precautions, which include fever, petechial rash, or any other symptoms that cause him concern, which would warrant emergent testing for thrombocytopenia, etc. The patient had an opportunity to have all questions answered, understands that he needs to go to the pharmacy and get his medication tonight. Patrizia Portillo MD Related Data Home Medications ?Medication ?Instructions ?Recorded ?Confirmed multivitamin 1 cap PO DAILY 08/19/18 10/27/23 lisinopril 5 mg tablet 5 mg PO DAILY 07/08/22 10/27/23 doxycycline hyclate 100 mg capsule 100 mg PO BID 14 days #28 caps 11/01/23 Previous Rx's ?Medication ?Instructions ?Recorded doxycycline hyclate 100 mg capsule 100 mg PO BID 14 days #28 [facility] 11/01/23 Allergies Allergy/AdvReac Type Severity Reaction Status Date / Time No Known Allergies Allergy Verified 10/27/23 12:31 General Stated Complaint: Dizzy/Sync ALFREDO: 3 Course Vital Signs Vital signs: Vital Signs Temperature 36.2 C L 10/27/23 12:25 Pulse 83 10/27/23 12:25 Respiratory Rate 16 10/27/23 12:25 Blood Pressure 103/73 10/27/23 12:25 Pulse Oximetry 98 10/27/23 12:25 Temperature 36.2 C L 10/27/23 14:30 Temperature Source Temporal Artery Scan 10/27/23 14:30 Pulse 59 L 10/27/23 17:00 Pulse 62 10/27/23 16:46 Respiratory Rate 11 L 10/27/23 17:00 Respiratory Effort Normal, Non-Labored 10/27/23 12:52 Respiratory Depth Normal 10/27/23 12:52 Respiratory Pattern Normal 10/27/23 12:52 Blood Pressure 109/71 10/27/23 17:00 Blood Pressure Mean 85 10/27/23 16:46 Pulse Oximetry 99 10/27/23 17:00 Oxygen Delivery Method Room Air 10/27/23 12:25 Oxygen Flow Rate 0 10/27/23 12:25 Pain Level 7 10/27/23 14:30 Lab/Test Results Lab/Test Results: Laboratory Tests Range/Units 10/27/23 10/27/23 10/27/23 12:38 12:42 13:32 WBC (4.4-10.8) 10^3/uL 5.38 RBC (4.36-5.78) 10^6/uL 5.48 Hgb (13.5-17.5) g/dL 15.0 Hct (40.0-50.0) % 44.1 MCV (80-95) fL 81 MCH (27.0-33.0) pg 27.4 MCHC (32.0-36.0) % 34.0 RDW (11.8-14.1) % 12.7 Plt Count (130-400) 10^3/uL 132 MPV (8.0-11.0) fL 9.2 Immature Gran % % 0.0 Neutrophils % % 52.0 Lymphocytes % % 36.0 Atypical Lymphs % % 6 Monocytes % % 6.0 Eosinophils % % 0.0 Basophils % % 0.0 Nucleated RBC % (0.0-0.3) % 0.0 Absolute Neutrophils (1.2-6.7) 10^3/uL 2.80 Absolute Lymphocytes (1.2-3.4) 10^3/uL 2.26 Absolute Monocytes (0.1-0.8) 10^3/uL 0.32 Absolute Eosinophils (0.0-0.7) 10^3/uL 0.00 Absolute Basophils (0.0-0.2) 10^3/uL 0.00 RBC Morphology Normal PT (9.1-11.1) sec 12.8 H INR (0.9-1.1) 1.3 H APTT (23.6-32.8) sec 28.6 VBG pH (7.31-7.41) 7.41 VBG pCO2 (41-51) mmHg 39 L VBG pO2 mmHg 52 VBG HCO3 (23-28) mmol/L 25 VBG Total CO2 (24-29) mmol/L 22 L VBG O2 Saturation % 87 VBG Base Excess (-2-3) mmol/L 1 Sodium (136-145) mmol/L 130 L Potassium (3.5-5.1) mmol/L 3.7 Chloride (98-107) mmol/L 96 L Carbon Dioxide (21.0-32.0) mmol/L 25.3 Anion Gap (3-11) mmol/L 8.7 BUN (7-18) mg/dL 20 H Creatinine (0.70-1.30) mg/dL 1.1 Est GFR (CKD-EPI 2020) (mL/min/1.73m2) 77.81 Glucose (74-106) mg/dL 112 H Calcium (8.5-10.1) mg/dL 9.3 Magnesium (1.8-2.4) mg/dL 2.5 H Total Bilirubin (0.2-1.0) mg/dL 1.45 H AST (15-37) U/L 74 H ALT (16-63) U/L 58 Alkaline Phosphatase (46-116) U/L 78 Troponin I High Sens (4-76) ng/L 8 6 NT-Pro-B Natriuret Pep (<300) pg/mL 21 Total Protein (6.4-8.2) g/dL 7.7 Albumin (3.4-5.0) g/dL 3.6 Lipase (16-77) U/L 69 TSH (0.36-3.74) uIU/mL 3.37 Urine Color (Yellow) Urine Clarity (Clear) Urine pH (5-8) Ur Specific [place] (1.005-1.025) Urine Protein (Neg-Trace) mg/dL Urine Ketones (Negative) mg/dL Urine Blood (Negative) Urine Nitrite (Negative) Urine Bilirubin (Negative) Urine Urobilinogen (Up to 0.2) mg/dL Ur Leukocyte Esterase (Negative) Urine RBC (0-2) HPF Urine WBC (0-5) HPF Ur Epithelial Cells (Negative) HPF Urine Crystals (Negative) HPF Urine Bacteria (Negative) HPF Urine Mucus (Negative) Ur Culture Indicated? Urine Glucose (Negative) mg/dL B. divergens/MO-1 PCR (Negative) Negative Babesia duncani (PCR) (Negative) Negative Babesia microti DNA PCR (Negative) Negative Lyme Disease Antibody (Negative) Negative COVID-19 Source Nasopharynx SARS-CoV-2 (PCR) (Negative) Negative E.chaffeensis DNA (PCR) (Negative) Negative E.ewingii/canis DNA PCR (Negative) Negative E.muris eauclairensis (PCR) (Negative) Negative Influenza Type A (PCR) (Negative) Negative Influenza Type B (PCR) (Negative) Negative RSV (PCR) (Negative) Negative A. phagocytophilum (PCR) (Negative) Positive A Blood B. miyamotoi (PCR) (Negative) Negative ABO/Rh A Positive Antibody Screen NEGATIVE Range/Units 10/27/23 10/27/23 15:12 15:39 WBC (4.4-10.8) 10^3/uL RBC (4.36-5.78) 10^6/uL Hgb (13.5-17.5) g/dL Hct (40.0-50.0) % MCV (80-95) fL MCH (27.0-33.0) pg MCHC (32.0-36.0) % RDW (11.8-14.1) % Plt Count (130-400) 10^3/uL MPV (8.0-11.0) fL Immature Gran % % Neutrophils % % Lymphocytes % % Atypical Lymphs % % Monocytes % % Eosinophils % % Basophils % % Nucleated RBC % (0.0-0.3) % Absolute Neutrophils (1.2-6.7) 10^3/uL Absolute Lymphocytes (1.2-3.4) 10^3/uL Absolute Monocytes (0.1-0.8) 10^3/uL Absolute Eosinophils (0.0-0.7) 10^3/uL Absolute Basophils (0.0-0.2) 10^3/uL RBC Morphology PT (9.1-11.1) sec INR (0.9-1.1) APTT (23.6-32.8) sec VBG pH (7.31-7.41) VBG pCO2 (41-51) mmHg VBG pO2 mmHg VBG HCO3 (23-28) mmol/L VBG Total CO2 (24-29) mmol/L VBG O2 Saturation % VBG Base Excess (-2-3) mmol/L Sodium (136-145) mmol/L Potassium (3.5-5.1) mmol/L Chloride (98-107) mmol/L Carbon Dioxide (21.0-32.0) mmol/L Anion Gap (3-11) mmol/L BUN (7-18) mg/dL Creatinine (0.70-1.30) mg/dL Est GFR (CKD-EPI 2020) (mL/min/1.73m2) Glucose (74-106) mg/dL Calcium (8.5-10.1) mg/dL Magnesium (1.8-2.4) mg/dL Total Bilirubin (0.2-1.0) mg/dL AST (15-37) U/L ALT (16-63) U/L Alkaline Phosphatase (46-116) U/L Troponin I High Sens (4-76) ng/L Cancelled NT-Pro-B Natriuret Pep (<300) pg/mL Total Protein (6.4-8.2) g/dL Albumin (3.4-5.0) g/dL Lipase (16-77) U/L TSH (0.36-3.74) uIU/mL Urine Color (Yellow) Yellow Urine Clarity (Clear) Clear Urine pH (5-8) 6.5 Ur Specific [place] (1.005-1.025) 1.015 Urine Protein (Neg-Trace) mg/dL Negative Urine Ketones (Negative) mg/dL Negative Urine Blood (Negative) Trace-intact H Urine Nitrite (Negative) Negative Urine Bilirubin (Negative) Negative Urine Urobilinogen (Up to 0.2) mg/dL 1.0 H Ur Leukocyte Esterase (Negative) Negative Urine RBC (0-2) HPF 0-2 Urine WBC (0-5) HPF Negative Ur Epithelial Cells (Negative) HPF Rare Urine Crystals (Negative) HPF Negative Urine Bacteria (Negative) HPF Negative Urine Mucus (Negative) Trace Ur Culture Indicated? No Urine Glucose (Negative) mg/dL Negative B. divergens/MO-1 PCR (Negative) Babesia duncani (PCR) (Negative) Babesia microti DNA PCR (Negative) Lyme Disease Antibody (Negative) COVID-19 Source SARS-CoV-2 (PCR) (Negative) E.chaffeensis DNA (PCR) (Negative) E.ewingii/canis DNA PCR (Negative) E.muris eauclairensis (PCR) (Negative) Influenza Type A (PCR) (Negative) Influenza Type B (PCR) (Negative) RSV (PCR) (Negative) A. phagocytophilum (PCR) (Negative) Blood B. miyamotoi (PCR) (Negative) ABO/Rh Antibody Screen Medical Decision Making Quality:SDOH Health Related Social Needs: No Data to Display PFSH All Active Problems (Updated 10/27/23 @ 16:33 by Satish Tellez MD) Pre-syncope (Acute) Dehydration (Acute) Normal colonoscopy (Acute) Medical History (Updated 10/27/23 @ 16:33 by Satish Tellez MD) Right foot sprain Hyperlipidemia Elevated blood pressure reading Acute Lyme disease Surgical History (Updated 10/31/18 @ 12:20 by Hina Coburn MD) Hx of colonoscopy Hx of tonsillectomy 10/31/18 Hx of appendectomy 2006. At which time a hernia was taken care of, per pt. Social History (Updated 10/24/18 @ 13:46 by BARTOLOME Lugo) Smoking/Tobacco Use Status: Never Smoking risk assessment performed?: Yes Alcohol Intake: current Alcohol Intake frequency: a few times a month Alcohol type: beer Drug use: Never Substance use type: does not use Housing: house Do you feel safe at home: Yes Do you feel safe in your relationship?: Yes PAWSS Have you Been Recently Intoxicated or Drunk Within the Last 30 days?: No Have you Ever Experienced Previous Episodes of Alcohol Withdrawal?: No Have you ever Experienced Withdrawal Seizures?: No Have you ever Experienced Delirium Tremens(DT)s?: No Have you ever undergone Alcohol Rehabilitation Treatment (i.e, inpt ot outpatient treatment programs)?: No Have you ever Experienced Blackouts?: No Have you ever Combined Alcohol with other Downers within the last 90 days?: No Have you ever Combined Alcohol with any other Substance of Abuse during the last 90 days?: No Positive Blood Alcohol level on Presentation? [PCS.BAL]: No Evidence of Increased Autonomic Activity (i.e. HR>120, tremor, sweating, agitation, nausea)?: No Result: 0
== END 2023-10-27 17:01 | disposition home or self-care (01) ==
PROVIDERS: Emergency Provider Emergency Medicine; PCP Physician Assistant
DX: E86.0 Dehydration (principal); R55 Syncope and collapse; E78.5 Hyperlipidemia, unspecified; R00.1 Bradycardia, unspecified; Z86.19 Personal history of other infectious and parasitic diseases
CPT/HCPCS: 80053; 82805; 83690; 86850; 86900; 86901; 87637; 87798; 93005; 96361; 96365; 96375; 99285; 71046; 74177; 81003; 81015; 83735; 83880; 84443; 84484; 85025; 85610; 85730; 86618; 93010; 99284; J0131; J2405; J3490

== ENCOUNTER 2024-06-03 11:23 | Outpatient (REF) | payer BC, SELFPAY ==
[2024-06-03 15:26] LABS: HCT 43.3 % (40.0-50.0); HGB 14.2 g/dL (13.5-17.5); MCH 27.1 pg (27.0-33.0); MCHC 32.8 % (32.0-36.0); MCV 83 fL (80-95); MPV 9.7 fL (8.0-11.0); Platelet Count 304 10^3/uL (130-400); RBC 5.24 10^6/uL (4.36-5.78); RDW 12.6 % (11.8-14.1); RDW-SD 37.9 fL
[2024-06-03 15:57] LABS: Anion Gap 5.7 mmol/L (3-11); BUN 17 mg/dL (7-18); CO2 31.3 mmol/L (21.0-32.0); Calcium 9.2 mg/dL (8.5-10.1); Calculated LDL 126 mg/dL (<100); Chloride 105 mmol/L (98-107); Cholesterol 215 mg/dL (<200); Estimated GFR 87.24 (mL/min/1.73m2); Glucose 89 mg/dL (74-106); HDL Cholesterol 49 mg/dL (>or=40); Potassium 4.5 mmol/L (3.5-5.1); Sodium 142 mmol/L (136-145); Triglyceride 200 mg/dL (<150)
[2024-06-03 22:45] LABS: PSA, Screening 0.6 ng/mL (<=3.5)
== END 2024-06-03 11:24 | disposition home or self-care (01) ==
LOC: NCHCN 11:23
PROVIDERS: PCP Physician Assistant; Visit Provider Physician Assistant
DX: Z12.5 Encounter for screening for malignant neoplasm of prostate (principal); I10 Essential (primary) hypertension; E78.5 Hyperlipidemia, unspecified
CPT/HCPCS: 80048; 80061; 84153; 85027

== ENCOUNTER 2024-07-19 15:36 | Emergency (ER) | payer OTHER, SELFPAY ==
[2024-07-19 15:38] VITALS: BP 152/88; PULSE 87; RESP 20; TEMP 36.4; O2SAT 98
--- NOTE | 2024-07-19 16:00 | DI.RAD_ITS ---
Exam(s) XR TIB/FIB LT EXAM: XR TIB/FIB LT CLINICAL HISTORY: muscle vs achilles tear, calf pain. TECHNIQUE: 2D digital imaging was performed. COMPARISON: No exams were available for comparison FINDINGS: Two views. There is a healed fracture in the proximal 3rd of the fibula. There are no acute fractures in the ti mario and fibula. Bone density normal. No osseous lesions. No radiopaque foreign bodies. IMPRESSION: No acute osseous findings. There is what appears to be a healed fracture site in the proximal 3rd of the fibula. DATA REPOSITORY: RADIATION DOSE DELIVERED:
--- NOTE | 2024-07-19 16:15 | DI.RAD_ITS ---
Exam(s) XR KNEE LT 4V AP,LAT,YAMIL,PAT EXAM: XR KNEE LT 4V AP,LAT,YAMIL,PAT CLINICAL HISTORY: r/o medial gastrocnemius avulsion fx. TECHNIQUE: 2D digital imaging was performed. COMPARISON: No exams were available for comparison FINDINGS: Four views. No evidence of fracture or obvious joint effusion. Bone density normal. No joint space narrowing. An enthesophyte is noted off the anterosuperior aspect of the patella at the quadriceps tendon insert ion site. IMPRESSION: No acute osseous findings in the left knee and no obvious joint effusion. DATA REPOSITORY: RADIATION DOSE DELIVERED:
--- NOTE | 2024-07-19 16:18 | W.ED.GENAD ---
Discharge Plan Discharge Details Chief Complaint: Orthopedic Primary Care Provider: Gen Nelson ED Provider: Carola Middleton Home Meds and New Rx's Prescriptions: No Action multivitamin capsule 1 cap PO DAILY lisinopril 5 mg Tablet 5 mg PO DAILY HPI General Date/Time Provider Initiated Documentation: 07/19/24 15:41. HPI Narrative: Agapito is a 58-year-old male who presents to the emergency department today for evaluation of leg injury. Approximately 40 hours ago, he experienced sharp pain in his calf during a sprint. Initially thought it was a muscle strain or cramp. Noticed a transient hollow depression in his leg that resolved spontaneously. Pain persisted despite attempts to mobilize/walk it off. Reports swelling below the calf and difficulty flexing foot upwards, says when he bears weight on the foot to flex the foot he causes a feeling of tightness in his calf. Denies joint swelling, fever/chills, numbness in toes, previous history of ankle injuries. Prefers to avoid analgesics, finds relief with leg elevation and sleep, says it feels best when he wakes up in the morning. Experiences pressure and throbbing pain upon standing or moving. Has been using crutches to avoid weight-bearing on affected leg. No recent use of ciprofloxacin or levofloxacin. No significant relevant past medical history, currently takes lisinopril. Prescribed doxycycline in 10/2023, denies other antibiotic use in the last couple of years for treatment of UTIs or pneumonias. Related Data Home Medications ?Medication ?Instructions ?Recorded ?Confirmed multivitamin 1 cap PO DAILY 08/19/18 07/19/24 lisinopril 5 mg tablet 5 mg PO DAILY 07/08/22 07/19/24 Allergies Allergy/AdvReac Type Severity Reaction Status Date / Time No Known Allergies Allergy Verified 07/19/24 15:45 General Stated Complaint: Orthopedic ALFREDO: 3 Exam Narrative Exam Narrative: General Appearance: Patient appears well. Vital signs: Normal, mild hypertension noted. Back, Musculoskeletal: Pain on palpation of calf muscle, no overlying ecchymosis, erythema, or skin lesions. Extremities: Negative Sanchez's squeeze test on left calf. Visible and palpable deformity proximal to left ankle. Difficulty bearing weight. Distal pulses and sensation intact. Skin: Warm and dry, no rash. Psychiatric: Normal. Course Vital Signs Vital signs: Vital Signs Temperature 36.4 C L 07/19/24 15:38 Pulse 87 07/19/24 15:38 Respiratory Rate 20 07/19/24 15:38 Blood Pressure 152/88 H 07/19/24 15:38 Pulse Oximetry 98 07/19/24 15:38 Temperature 36.4 C L 07/19/24 15:38 Temperature Source Oral 07/19/24 15:38 Pulse 87 07/19/24 15:38 Respiratory Rate 20 07/19/24 15:38 Blood Pressure 152/88 H 07/19/24 15:38 Blood Pressure Position Sitting 07/19/24 15:38 Pulse Oximetry 98 07/19/24 15:38 Oxygen Delivery Method Room Air 07/19/24 15:38 Oxygen Flow Rate 0 07/19/24 15:38 Pain Level 3 07/19/24 15:38 Medical Decision Making Initial Assessment: 58-year-old male with a left calf injury sustained while playing kickball. Presents with pain, swelling, and difficulty flexing the foot upwards. Visible and palpable deformity proximal to the left ankle, no overlying skin tears, and intact distal pulses. Negative Sanchez squeeze test. ED Course: - Physical examination reveals visible and palpable deformity proximal to the left ankle. - Negative Sanchez squeeze test. - Ordered x-ray to rule out avulsion fracture. - Advised to continue ice application. - Referral to orthopedist at [facility] for further evaluation and management. Final Assessment: Patient presents with a left calf muscle tear vs partial Achilles tendon injury. X-ray ordered to rule out avulsion fracture. Patient advised to continue ice application and referred to orthopedist for further evaluation. Patient to use a tall walking boot and crutches to maintain nonweightbearing status. Clinical Impression: - Left calf muscle pain Disposition: - Referral to orthopedist at [facility] for further evaluation and management. MDM Components Evaluation: - Number of Differential Diagnoses or Management Options: Left calf muscle tear, Achilles tendon injury. - Amount and Complexity of Data Reviewed: Physical examination, Sanchez squeeze test, x-ray ordered. - Risk of Complication and Morbidity or Mortality: Low risk of complications, morbidity or mortality given the partial nature of the tear and intact distal pulses. Patient consented to the use of NEGIN Quality:[facility] Health Related Social Needs: No Data to Display PFSH All Active Problems (Updated 11/27/23 @ 00:08 by VIKAS BORDEN) Normal colonoscopy (Acute) Medical History (Updated 11/27/23 @ 00:08 by VIKAS BORDEN) Right foot sprain Hyperlipidemia Elevated blood pressure reading Acute Lyme disease Surgical History (Updated 10/31/18 @ 12:20 by Hina Coburn MD) Hx of colonoscopy Hx of tonsillectomy 10/31/18 Hx of appendectomy 2006. At which time a hernia was taken care of, per pt. Social History (Updated 10/24/18 @ 13:46 by BARTOLOME Lugo) Smoking/Tobacco Use Status: Never Smoking risk assessment performed?: Yes Alcohol Intake: current Alcohol Intake frequency: a few times a month Alcohol type: beer Drug use: Never Substance use type: does not use Housing: house Do you feel safe at home: Yes Do you feel safe in your relationship?: Yes
== END 2024-07-19 17:33 | disposition home or self-care (01) ==
PROVIDERS: Emergency Provider Nurse Practitioner Family; PCP Physician Assistant
DX: S89.82XA Other specified injuries of left lower leg, initial encounter (principal); I10 Essential (primary) hypertension; E78.5 Hyperlipidemia, unspecified; X50.9XXA Other and unspecified overexertion or strenuous movements or postures, initial encounter; Y93.6A Activity, physical games generally associated with school recess, summer camp and children; Y92.89 Other specified places as the place of occurrence of the external cause
CPT/HCPCS: 99283; 73564; 73590